=== PATIENT | male | born 1965 | race Caucasian/White ===

== ENCOUNTER 2018-10-13 12:31 | Outpatient (CLI) | payer OTHER ==
--- NOTE | 2018-10-13 14:33 | Diagnostic Imaging Report ---
Indication: Right hand pain Findings: 3 views of the right hand were obtained. Normal bony mineralization and alignment are demonstrated. No acute fractures, erosions, or periosteal reaction are seen. Soft tissues are unremarkable. Impression: No acute findings.
== END 2018-10-13 14:31 | disposition home or self-care (01) ==
LOC: RAD 12:31
DX: Z00.01 Encounter for general adult medical examination with abnormal findings (principal); M25.541 Pain in joints of right hand

== ENCOUNTER 2019-01-19 16:05 | Outpatient (CLI) | payer OTHER ==
--- NOTE | 2019-01-19 17:28 | Diagnostic Imaging Report ---
Indication: Chest pain Technique: 2 views of the chest Comparison: None Findings: Lungs and pleural spaces are clear. The heart size is normal. The bones are unremarkable. No significant interim change. Impression: Negative
== END 2019-01-19 18:05 | disposition home or self-care (01) ==
LOC: RAD 16:05
DX: R07.89 Other chest pain (principal)
CPT/HCPCS: 71046